=== PATIENT | female | born 1980 | race Caucasian/White ===

== ENCOUNTER → 2021-07-29 | Outpatient (CLI) | payer BC ==
[~2021-07-29] MED LIST: AIMOVIG AU140 MG/1 M INJ; ALBUTEROL2.5 MG/3 M INH; BACLOFEN10 MG PO; CHLORTHALIDONE50 MG PO; CLARITIN10 MG PO; CLINDAMYCIN HC300 MG PO; CYCLOBENZAPRINE10 MG PO; DICLOFENAC GEL TOP; ECPIRIN325 MG PO; FLONASE SPRAY; GLUCOPHAGE500 MG PO; IBU800 MG PO; MULTIVITAMINS1 EAC1 PO; PERCOCET 5-3251 EACH PO; VITAMIN C500 M3 PO; VITAMIN D PO; ZOFRAN4 MG PO; ZOFRAN8 MG PO
== END ==
LOC: KOH-I 08:39
DX: M79.671 Pain in right foot (principal); M25.571 Pain in right ankle and joints of right foot; M25.471 Effusion, right ankle
CPT/HCPCS: 73610; 73630

== ENCOUNTER → 2021-08-08 | Outpatient (CLI) | payer BC | LOC: KOH-I 08:12 | DX: R22.41 Localized swelling, mass and lump, right lower limb (principal); M72.2 Plantar fascial fibromatosis; M21.6X1 Other acquired deformities of right foot | CPT/HCPCS: 73718 ==